=== PATIENT | female | born 1980 | race Caucasian/White ===

== ENCOUNTER 2021-03-26 07:58 | Outpatient (REF) | payer OTHER, SELFPAY ==
--- NOTE | ~2021-03-26 | XR_ITS ---
EXAMINATION: XR ANKLE, LEFT CLINICAL INFORMATION: Joint pain. COMPARISON: None TECHNIQUE: Left ankle is imaged in 3 views. FINDINGS: There is soft tissue swelling greater on the lateral side. Bony mineralization appears normal. There is no fracture, dislocation, or destructive process. No periostitis. The ankle mortise is symmetric. There is no joint narrowing or erosive change or chondrocalcinosis. The subtalar joint is unremarkable. The retrocalcaneal recess is preserved. XR/XR ankle LT min 3V IMPRESSION: Soft tissue swelling greater lateral side. No bony abnormality.
== END 2021-03-26 07:59 | disposition home or self-care (01) ==
LOC: HO.HOSX 07:58
PROVIDERS: Visit Provider Physician Assistant
DX: M25.562 Pain in left knee (principal); M79.9 Soft tissue disorder, unspecified
CPT/HCPCS: 73610; 99202